=== PATIENT | male | born 1955 | race Caucasian/White ===

== ENCOUNTER → 2018-01-11 | Day surgery (SDC) | payer MEDICARE, BC ==
[2018-01-09 14:39] VITALS: BMI 32.0
[~2018-01-11] MED LIST: LACTATED RINGERS 1,000 ML IV SCH; LIDOCAINE 1% 20 ML VIAL (10MG/ML) FOR IV START INTRADERMA ONE; LIDOCAINE 1% INJ 10MG/ML (20 ML MDV) ONE; PROPOFOL 10 MG/ML 20 ML VIAL IV ONE
[2018-01-11 12:22] VITALS: RESP 16; TEMP 98
--- NOTE | 2018-01-11 13:14 | P.PCN ---
Date of Procedure: 01/11/18 Procedure(s) Performed: BRIEF HISTORY: Patient is a 62-year-old pleasant white male, scheduled for an elective colonoscopy as a part of evaluation of prior history of colon polyps. Last colonoscopy was findings of an adenoma. PROCEDURE PERFORMED: Colonoscopy with snare polypectomy. PREOPERATIVE DIAGNOSIS: History of colon polyps. IV sedation per Anesthesia. PROCEDURE: After informed consent was obtained, the patient, was brought into the endoscopy unit. IV sedation was administered by Anesthesia under continuous monitoring. Digital rectal examination was normal. Initially the Olympus CF- 160 flexible video colonoscope was then inserted in the rectum, gradually advanced into the cecum without any difficulty. Careful examination was performed as the scope was gradually being withdrawn. Ileocecal valve and the appendiceal orifice were visualized and appeared normal. Prep was excellent. Mucosa of the cecum, ascending colon, transverse colon, descending colon, sigmoid colon, and rectum appeared normal. There was a 5 mm sessile mid rectal polyp that was removed by snare polypectomy. Retroflexion was performed in the rectum and no lesions were seen. The patient tolerated the procedure well. IMPRESSION: 5 mm sessile mid rectal polyp status post polypectomy Rest of the colon appeared normal RECOMMENDATIONS: Findings of this examination were discussed with the patient as well as her family. He was advised to follow with the biopsy results. If the biopsy shows a tubular adenoma, he can have a repeat colonoscopy in 5 years.
[2018-01-11 13:51] VITALS: BP 116/80; PULSE 68
== END | disposition home or self-care (01) ==
LOC: ORWHC2ENDO 10:49
PROVIDERS: ATTEND Internal Medicine Gastroenterology
DX: Z86.010 Personal history of colon polyps (principal); K62.1 Rectal polyp; J45.909 Unspecified asthma, uncomplicated; Z88.2 Allergy status to sulfonamides; Z79.899 Other long term (current) drug therapy; E78.5 Hyperlipidemia, unspecified
CPT/HCPCS: 45385; J2001; J2704

== ENCOUNTER → 2020-05-17 | Outpatient (CLI) | payer MEDICARE ==
--- NOTE | 2020-05-17 08:41 | US ---
EXAMINATION TYPE: US duplex aorta DATE OF EXAM: 05/17/2020 COMPARISON: NONE CLINICAL HISTORY: 65-year-old male Z13.6 screening for AAA. HTN controlled with meds. Nonsmoker. No hx of AAA TECHNIQUE: Multiple sonographic images of the abdominal aorta are obtained. FINDINGS: EXAM MEASUREMENTS: Abdominal Aorta: Proximal: 2.4 x 2.5 cm Mid: 2.2 x 2.3 cm Distal: 1.8 x 2.0 cm Bifurcation: Right- 1.3 x 1.1 cm Left- 1.5 x 1.0 cm No AAA visualized at time of exam. Incidental echogenic liver. IMPRESSION: 1. Borderline ectatic proximal abdominal aorta 2.5 cm. 2. Borderline ectatic left common iliac artery at 1.5 cm. 3. No evidence for AAA. 4. Incidental hepatic steatosis.
== END | disposition home or self-care (01) ==
LOC: RADUSWWP 07:22
PROVIDERS: ATTEND Family Medicine
DX: Z13.6 Encounter for screening for cardiovascular disorders (principal); I77.810 Thoracic aortic ectasia; R09.89 Other specified symptoms and signs involving the circulatory and respiratory systems; I10 Essential (primary) hypertension
CPT/HCPCS: 93979

== ENCOUNTER → 2020-06-22 | Outpatient (CLI) | payer MEDICARE ==
--- NOTE | 2020-06-22 15:30 | US ---
EXAMINATION TYPE: US carotid duplex BILAT DATE OF EXAM: 06/22/2020 COMPARISON: NONE CLINICAL HISTORY: R06.09 OTHER FORMS OF DYSPNEA. EXAM MEASUREMENTS: RIGHT: Peak Systolic Velocity (PSV) cm/sec ----- Right CCA: 66.6 ----- Right ICA: 108.2 ----- Right ECA: 83.1 ICA/CCA ratio: 1.6 RIGHT: End Diastole cm/sec ----- Right CCA: 23.7 ----- Right ICA: 37.0 ----- Right ECA: 23.7 LEFT: Peak Systolic Velocity (PSV) cm/sec ----- Left CCA: 79.7 ----- Left ICA: 92.1 ----- Left ECA: 84.0 ICA/CCA ratio: 1.2 LEFT: End Diastole cm/sec ----- Left CCA: 17.6 ----- Left ICA: 34.3 ----- Left ECA: 22.7 VERTEBRALS (direction of flow): Right Vertebral: Antegrade Left Vertebral: Antegrade Rhythm: Normal Bilateral intimal thickening, no elevated velocities, no significant stenosis. IMPRESSION: Atheromatous plaquing and intimal thickening without significant flow-limiting stenosis. Criteria for Assigning % of Stenosis / Diameter reduction (Estimation based on the indirect measurements of the internal carotid artery velocities (ICA PSV). 1. Normal (no stenosis)=ICA PSV < 125 cm/s: ratio < 2.0: ICA EDV<40 cm/s. 2. Less than 50% stenosis=ICA PSV < 125 cm/s: ratio < 2.0: ICA EDV<40 cm/s. 3. 50 to 69% stenosis=ICA PSV of 125 to 230 cm/s: ration 2.0 ? 4.0: ICA EDV 40-100 cm/s. 4. Greater than 70% stenosis to near occlusion= ICA PSV > 230 cm/s: ratio > 4.0: ICA EDV > 100 cm/s. 5. Near occlusion= ICA PSV velocities may be low or undetectable: variable ratio and ICA EDV. 6. Total occlusion=unable to detect flow.
== END | disposition home or self-care (01) ==
LOC: RADUSWWP 14:55
PROVIDERS: ATTEND Family Medicine
DX: I65.23 Occlusion and stenosis of bilateral carotid arteries (principal); I77.89 Other specified disorders of arteries and arterioles
CPT/HCPCS: 93880

== ENCOUNTER → 2020-07-08 | Outpatient (CLI) | payer MEDICARE ==
--- NOTE | 2020-07-08 15:33 | ECHOS ---
STRESS ECHOCARDIOGRAM DATE OF SERVICE: 07/08/2020 LUMASON: N/A Vial INDICATIONS: Chest pain. MEDICATIONS: BASELINE HEART RATE: 80 BASELINE BLOOD PRESSURE: 151/84 MAXIMUM HEART RATE: 134 MAXIMUM BLOOD PRESSURE: 151/84 85% MPHR: 131 100% MPHR: 154 METS: 7.1 MAXIMUM STAGE REACHED: 2 TOTAL EXERCISE TIME: 5 minutes CLINICAL INFORMATION: STRESS DATA: Pre-testing physical examination showed a heart rate of 80, pressure is 151/84 mmHg. Baseline EKG showed sinus mechanism. The patient exercised on the treadmill according to Thomas protocol for a total of 5 minutes and achieved 7.1 METs. Max heart rate was 134 which is about 87% of maximum predicted heart rate and maximum blood pressure was 151/84 mmHg. Clinically, the patient did not have any symptoms of chest pain or chest discomfort. The EKG did not show any significant ST or T-wave abnormalities concerning for ischemia. Analysis on echocardiogram images from parasternal long axis view, parasternal short axis view, apical 4 chamber and apical 2 chambers were obtained as the baseline images, at the peak of the heart rate as well as on recovery. The echocardiogram images did not show any evidence of wall motion abnormalities concerning for ischemia. CONCLUSION: 1. Average exercise tolerance. 2. Normal EKG in response to exercise. 3. Normal echocardiogram in response to exercise. MMODL / IJN: [id number] /
== END ==
LOC: RADNMMAIN 09:06
PROVIDERS: ATTEND Family Medicine
DX: R06.00 Dyspnea, unspecified (principal)
CPT/HCPCS: 93351

== ENCOUNTER → 2021-02-18 | Outpatient (CLI) | payer MEDICARE ==
[2021-02-18 13:24] LABS: African American GFR (CKD) >90 (>60 ml/min/1.73 sqM); Blood Urea Nitrogen 21 mg/dL (9-20); Non-African American GFR(CKD) 89 (>60 ml/min/1.73 sqM)
--- NOTE | 2021-02-18 15:32 | CT ---
EXAMINATION TYPE: CT ChestAbdPelvis w con DATE OF EXAM: 02/18/2021 INDICATION: Abnormal weight loss COMPARISON: 07/21/2013 CT DLP: 1960 mGycm CONTRAST: Performed with Oral Contrast and with IV Contrast, patient injected with 100 ml mL of Isovue 300. TECHNIQUE: Axial images at 5 mm thick sections. Reconstructed images in the coronal plane. Delayed images through the kidneys. FINDINGS: CT CHEST: Portion of the thyroid visualized is normal. No suspicious lung nodules or focal infiltrates are present. No enlarged mediastinal or hilar adenopathy is evident. The ascending aorta diameter at the level of the main pulmonary artery is 4.0 cm. The main pulmonary artery diameter at the bifurcation is 2.[address] ABDOMEN: Liver: Normal Spleen: Normal Pancreas: Normal Adrenal glands: The adrenal glands are normal. Gallbladder: Normal Kidneys: No masses are evident. No hydronephrosis is present. No cysts are present. Delayed images were obtained through the kidneys, which remain unremarkable. Aorta: Vascular calcification is within the aorta. Inferior vena cava: Normal. CT PELVIS: Loops of bowel within the abdomen and pelvis are normal. There are loops of bowel which are incom pletely distended or lack oral contrast limiting their evaluation. Appendix: Normal as visualized. Urinary bladder: Normal. Genitourinary structures: Prostate is prominent. Osseous structures: No suspicious lytic or sclerotic lesions. Small fat-containing left inguinal hernia may be present. No loops of bowel are involved. IMPRESSIONS: 1. No suspicious abnormality to account for patient's weight loss.
== END | disposition home or self-care (01) ==
LOC: RADCTMAIN 12:32
PROVIDERS: ATTEND Family Medicine
DX: R63.4 Abnormal weight loss (principal)
CPT/HCPCS: 82565; 84520; 71260; 74177; 36415; Q9967

== ENCOUNTER → 2021-06-10 | Outpatient (CLI) | payer MEDICARE ==
--- NOTE | 2021-06-10 07:48 | MR ---
EXAMINATION TYPE: MR lumbar spine wo con DATE OF EXAM: 06/10/2021 COMPARISON: Outside lumbar spine x-ray April 11, 2021. CT whole body February 18, 2021 HISTORY: low back pain TECHNIQUE: Multiplanar, multisequence imaging of the lumbar spine is performed without IV contrast. FINDINGS: Sagittal images of the lumbar spine show vertebral body heights and alignment to remain sat isfactory. Multilevel disc desiccation but the disc space heights are fairly well-preserved. The con us medullaris is normal in position and signal ending mid L1 level. Small hemangiomas are present in the L1 vertebra. Mild to moderate anterior spurring at the anterior T11-T12 disc space with heterogen eous Modic type II endplate changes at the anterior inferior T11 level. Posterior disc herniation at this level effaces the anterior thecal sac. Axial images at T12-L1, L1-L2, L2-L3, and L3-L4 levels all appear within normal limits. Axial images at L4-L5 level show [id number] facet degenerative changes bilaterally mildly effac ing the posterolateral thecal sac left greater than right. Mild broad disc bulge . Patent bilateral n eural foramina. Axial images at L5-S1 levels show [id number] facet degenerative changes bilaterally. Spinal can al is preserved. Patent bilateral neural foramina. Paraspinal muscle bulk is maintained. Incidental 1.1 cm benign thin-walled cyst in the left kidney fe lt present axial image 31. IMPRESSION: Mild to moderate degenerative changes lower lumbar spine as detailed above.
== END | disposition home or self-care (01) ==
LOC: RADMRIMAIN 05:57
PROVIDERS: ATTEND Orthopaedic Surgery
DX: M47.816 Spondylosis without myelopathy or radiculopathy, lumbar region (principal); D18.09 Hemangioma of other sites; M25.78 Osteophyte, vertebrae; M51.26 Other intervertebral disc displacement, lumbar region; N28.1 Cyst of kidney, acquired
CPT/HCPCS: 72148

== ENCOUNTER → 2021-06-27 | Outpatient (CLI) | payer MEDICARE ==
--- NOTE | 2021-06-28 03:19 | MR ---
EXAMINATION TYPE: MR thoracic spine wo/w con DATE OF EXAM: 06/27/2021 COMPARISON: None HISTORY: Mid back pain for 4 months. CONTRAST: Standard multiplanar, multisequence MRI departmental protocol images were obtained without contrast a nd with 12 mL intravenous Gadavist gadolinium contrast. There is a prosthetic mild kyphotic deformity with almost 90 degrees of kyphosis. There is some mild anterior wedging of numerous thoracic vertebra. There is involvement of the vertebra from at least T5 -T10. No evidence of an acute fracture. No bone edema. There is developmentally large spinal canal and no spinal stenosis. Thoracic spinal cord has normal s ignal pattern. No edema. No evidence of thoracic paraspinal mass. The posterior elements are intact. IMPRESSION: Spondylotic changes with mild anterior wedging of numerous mid and lower thoracic vertebra and kyphot ic deformity as a result. No acute fracture seen. No evidence of spinal stenosis.
== END | disposition home or self-care (01) ==
LOC: RADMRIMAIN 18:55
PROVIDERS: ATTEND Orthopaedic Surgery
DX: M47.814 Spondylosis without myelopathy or radiculopathy, thoracic region (principal); M40.294 Other kyphosis, thoracic region; M48.54XA Collapsed vertebra, not elsewhere classified, thoracic region, initial encounter for fracture
CPT/HCPCS: 72157; A9585

== ENCOUNTER → 2021-11-08 | Outpatient (CLI) | payer MEDICARE ==
--- NOTE | 2021-11-08 13:11 | MR ---
EXAMINATION TYPE: MR shoulder RT wo con DATE OF EXAM: 11/08/2021 COMPARISON: Outside radiograph 10/18/2021 HISTORY: 66-year-old male Right shoulder pain and limited movement for 2 months. TECHNIQUE: Multiplanar, multisequence imaging of the right shoulder is performed without contrast. FINDINGS: There is a small interstitial tear of the intracapsular portion of the long head biceps tendon. The e xtracapsular portion remains appropriately situated along the bicipital groove. Moderate tenosynovial fluid along the bicipital groove. Small 4 mm loose body along the bicipital groove. Heterogeneity of the subscapularis tendon which otherwise remains intact. There is mild degenerative change at the acromioclavicular joint. Some downsloping of the acromion re sults in mild mass effect onto the underlying cuff. There is bursal sided fraying of both supraspinatus and infraspinatus tendons with heterogeneous sign al present throughout. No high-grade partial or full-thickness tear is identified. Some edematous don nge within the rotator cuff interval likely some synovitis. No significant effusion within the subacromial/subdeltoid bursa. No atrophy of the rotator cuff muscu lature. Small glenohumeral joint effusion. Mild marginal spurring of the glenohumeral joint. Mild to moderate irregular cartilage loss throughout, most extensive cartilage loss along the superior humeral head a rticular surface. Subchondral geode or reactive marrow edema posterior glenoid. Small loose bodies wi thin the subscapularis recess measuring up to 7 mm. There is irregularity of the posterior superior glenoid labrum. Suspect a small sublabral foramen wesly ng the anterior superior glenoid. There is a sizable tear of the inferior labrum extending for about 45 degrees with a 1.3 x 0.8 cm paralabral cyst at 7:00. No Hill-Sachs deformity or os acromiale. Some patchy red marrow can be seen in the setting of anemia, obesity, smoking, and chronic disease. IMPRESSION: 1. Mild to moderate glenohumeral joint OA with more significant cartilage loss along the superior art icular surface of the humeral head. Small reactive joint effusion and small loose bodies in the subsc apularis recess measuring up to 7 mm. 2. Small SLAP tear. Larger tear of the inferior labrum extending for about 45 degrees. Associated 1.3 cm paralabral cyst at 7:00. 3. Diffuse rotator cuff tendinosis. There is bursal sided fraying throughout but no high-grade partia l or full-thickness rotator cuff tear. 4. Mild AC joint OA. Downsloping acromion may contribute to some subacromial impingement. 5. Interstitial tear of the intracapsular portion of the long head biceps tendon. Associated tenosyno vitis.
== END | disposition home or self-care (01) ==
LOC: RADMRIMAIN 10:59
PROVIDERS: ATTEND Orthopaedic Surgery
DX: M19.011 Primary osteoarthritis, right shoulder (principal); M75.111 Incomplete rotator cuff tear or rupture of right shoulder, not specified as traumatic

== ENCOUNTER → 2022-02-08 | Outpatient (CLI) | payer MEDICARE ==
[2022-02-08 14:34] LABS: Basophils # (A) 0.04 X 10*3/uL (0.00-0.10); Basophils % (A) 0.7 %; Eosinophils # (A) 0.19 X 10*3/uL (0.04-0.35); Eosinophils % (A) 3.5 %; HCT 43.9 % (39.6-50.0); HGB 14.7 g/dL (13.0-17.0); Immature Grans, Automated 0.4 %; Lymphocytes # (A) 1.93 X 10*3/uL (0.90-5.00); Lymphocytes % (A) 35.2 %; MCH 32.6 pg (27.0-32.0); MCHC 33.5 g/dL (32.0-37.0); MCV 97.3 fL (80.0-97.0); Monocytes # (A) 0.64 X 10*3/uL (0.20-1.00); Monocytes % (A) 11.7 %; NRBC Per 100 WBC 0 /100 WBCS (0.0-0.0); Neutrophils # (A) 2.67 X 10*3/uL (1.80-7.70); Neutrophils % (A) 48.5 %; Platelet Count 258 X 10*3/uL (140-440); RBC 4.51 X 10*6/uL (4.40-5.60); WBC 5.49 X 10*3/uL (4.50-10.00)
[2022-02-08 15:26] LABS: Anion Gap 8.5 mmol/L (10.00-18.00); Carbon Dioxide 28.4 mmol/L (20.0-27.5); Potassium 4.8 mmol/L (3.5-5.5)
== END | disposition home or self-care (01) ==
LOC: LABPAT 09:54
PROVIDERS: ATTEND Orthopaedic Surgery
DX: Z01.812 Encounter for preprocedural laboratory examination (principal); M75.41 Impingement syndrome of right shoulder
CPT/HCPCS: 80051; 85025; 93005

== ENCOUNTER 2022-02-22 06:38 | Day surgery (SDC) | payer MEDICARE ==
[2022-02-21 08:55] VITALS: BMI 31.4
--- NOTE | 2022-02-21 23:29 | HP ---
HISTORY AND PHYSICAL DATE OF SURGERY: 02/22/2022. HISTORY OF PRESENT ILLNESS: Yomi Oropeza is a 67-year-old gentleman, seen with progressive right shoulder pain. We discussed options for treatment. He elected to proceed with right shoulder arthroscopy. Consent regarding the procedure was obtained. PAST MEDICAL HISTORY: Hypertension, hyperlipidemia. PAST SURGICAL HISTORY: Herniorrhaphy, tonsillectomy, vasectomy. DAILY MEDICATIONS: 1. Lipitor. 2. Amlodipine. 3. Mobic. 4. Aleve. ALLERGIES: Sulfa. SOCIAL HISTORY: He denies tobacco use. PHYSICAL EVALUATION OF RIGHT SHOULDER: Flexion 110 degrees, abduction is 90 degrees, external rotation is 30 degrees with weakness. Tenderness along the anterolateral acromion and rotator cuff insertion. Impingement is positive at 90 degrees. Cross-body adduction sign is positive. Drop- arm sign is positive. Distal neurovascular exam is intact. RADIOGRAPHS: Radiographs of the right shoulder revealed a type 2 acromion, acromioclavicular joint osteoarthritis, and cystic changes of the greater tuberosity. MRI of the right shoulder revealed a labral tear, downsloping lateral acromion, rotator cuff tendinitis, and partial biceps tendon tear. IMPRESSION: 1. Right shoulder impingement with labral tear and possible rotator cuff tear. 2. Right shoulder partial long head biceps tendon tear. 3. Hypertension. 4. Hyperlipidemia. PLAN: Right shoulder arthroscopy with subacromial decompression, labral debridement, biceps tenotomy, possible arthroscopic rotator cuff repair and debridement. MMODL / BEATAN: [id number] /
[2022-02-22] MEDS ORDERED: HYDROmorphone 0.5 MG/0.5 ML SYRINGE IVP PRN (07:07)
[2022-02-22] MEDS ORDERED: LACTATED RINGERS 1,000 ML IV SCH (07:07)
[2022-02-22] MEDS ORDERED: DEXAMETHASONE SOD PHOSPHATE 4 MG/ML 1 ML VIAL IV ONE (07:07)
[2022-02-22] MEDS ORDERED: ONDANSETRON 4 MG/2 ML VIAL IVP ONE (07:07)
[2022-02-22 07:54] LABS: Glucose,Whole Blood 102 mg/dL (70-110)
[2022-02-22] MEDS ORDERED: MIDAZOLAM 2 MG/2 ML VIAL IVP ONE (07:58)
[2022-02-22] MEDS ORDERED: fentaNYL (PF) 50 MCG/ML 2 ML AMP IVP ONE (07:59)
[2022-02-22] MEDS ORDERED: PROPOFOL 10 MG/ML 20 ML VIAL IV ONE (08:11)
[2022-02-22] MEDS ORDERED: ROPIVACAINE 5 MG/ML 30 ML VIAL ONE (08:11)
[2022-02-22] MEDS ORDERED: HYDROmorphone (PF) 1 MG/ML ONE (08:11)
[2022-02-22] MEDS ORDERED: fentaNYL (PF) 50 MCG/ML 2 ML AMP ONE (08:11)
[2022-02-22] MEDS ORDERED: SUCCINYLCHOLINE CHLORIDE 200 MG/10 ML VIAL IV ONE (08:11)
[2022-02-22] MEDS ORDERED: MIDAZOLAM 2 MG/2 ML VIAL ONE (08:11)
[2022-02-22] MEDS ORDERED: LIDOCAINE 2% INJ 20 MG/ML (2 ML VIAL) ONE (08:11)
[2022-02-22] MEDS ORDERED: LACTATED RINGERS 1,000 ML IV ONE (09:13)
--- NOTE | 2022-02-22 09:54 | P.ANPRN ---
Procedure Note - Anesthesia - Nerve Block Performed Right Interscalene Single Time Out Performed: Yes ([id number]) Date of Procedure: 02/22/22 Procedure Start Time: 07:58 Procedure Stop Time: 08:04 Location of Patient: PreOp Indication: Acute Post-Operative Pain, Requested by Surgeon Specifically requested for management of pain by DrDante: Yomi Mata Sedation Type: Sedate with meaningful contact maintained Preparation: Sterile Prep Position: Supine Catheter: None Needle Types: Pajunk Needle Gauge: 21 Ultrasound used to visualize needle placement: Yes Ultrasound used to observe medication spread: Yes Injectate: 0.5% Ropivacaine (see comment for volume) (30cc) Blood Aspirated: No Pain Paresthesia on Injection Noted: No Resistance on Injection: Normal Image Stored and Saved: Yes Events: Uneventful and Well Tolerated
--- NOTE | 2022-02-22 09:58 | P.OP ---
Date of Procedure: 02/22/22 Preoperative Diagnosis: Right shoulder impingement Postoperative Diagnosis: 1. Right shoulder rotator cuff tear 2. Right shoulder impingement 3. Right shoulder partial long head biceps tendon tear 4. 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 Right shoulder arthroscopic rotator cuff repair 2. Right shoulder arthroscopic subacromial decompression 3. Right shoulder arthroscopic biceps tenotomy Implants: 14.75 Arthrex swivel lock anchor Anesthesia: GETA, regional (Interscalene block) Surgeon: Yomi Mata Senior Corporate Accountant #1: Silvestre Kelley Estimated Blood Loss (ml): 11 Pathology: none sent Condition: stable Disposition: PACU Indications for Procedure: 67-year-old patient seen with progressive right shoulder pain. After having treatment options discussed, he elected to proceed with arthroscopy. Operative Findings: See description of procedure Description of Procedure: Patient underwent an interscalene block by department of anesthesia. The patient was then taken to the operative suite. The patient underwent a general anesthetic by the department of anesthesia. The patient was placed into a lateral position and secured. There was appropriate padding of the bony prominence. Right shoulder was then prepped and draped in normal sterile orthopedic fashion. We placed the extremity in 10 pounds of longitudinal traction. A posterior incision was now made for a posterior working portal site. The trocar and cannula were inserted into the glenohumeral joint. Arthroscopy was initiated. Spinal needle was now inserted anteriorly, to ascertain the anterior working portal site. An incision was now made in that area, a trocar was inserted followed by a probe. There was some partial tearing and hyperemia involving long head biceps tendon. There was grade 2/3 chondral malacia changes of the humeral head more notable posteriorly with. Mild osteochondral flap tears. The labrum was frayed superiorly without obvious tear. I performed an arthroscopic biceps tenotomy. I debrided some superficial fraying of the superior labrum. I performed a light chondroplasty of the humeral head. The residual osteochondral surface was stable again noted grade 2/3 chondromalacia more posteriorly. The residual labrum was stable. Instruments were now removed from the glenohumeral joint. Utilizing the posterior working portal site, the trocar and cannula were inserted into the subacromial space. Arthroscopy initiated. I made an incision 2 fingerbreadths lateral to the acromion. I introduced my trocar followed by my ArthroCare ablator. I now began ablating thick subacromial bursal tissue, which exposed the undersurface of the anterior acromion. There was diminished subacromial space. There was a very prominent anterior acromion. A motorized bur was introduced and a subacromial decompression was performed. I also excised some osteophytes off the inferior aspect of the distal clavicle. The AC joint was visualized and noted to be moderately arthritic. I did not think enough toward a Avelino procedure. I turned my attention to the rotator cuff tendon. Upon probing the tendon was a full-thickness perforation along the distal supraspinatus. I debrided the margins getting down to stable tendon tissue. Care/defect measured approximately 1.5 cm. It was freely mobile over the footprint. I abraded the footprint with a motorized bur. With the assistance of Aleksandr SPEAR I passed 3 everted mattress sutures through good bites of rotator cuff tendon. I punched a hole the footprint area for insertion of an anchor. All 6 limbs of suture were passed through eyelet of a 4.75 Arthrex swivel lock anchor. I placed the eyelit into the pre-punched hole. I held that in position while Aleksandr SPEAR tension all 6 limbs of suture and deployed the anchor was good fixation noted. All residual suture limbs were now clipped. We had good compression of the tendon along the entire footprint. Instruments now removed from the portal sites. All portal sites were approximated with nylon suture. Sterile dressings were applied followed by a shoulder sling. Silvestre SPEAR assisted in this complex case. The patient was awakened, transferred to a bed, and taken to recovery in stable condition.
[2022-02-22 10:01] VITALS: TEMP 97.9
[2022-02-22 11:29] VITALS: BP 134/79; PULSE 67; RESP 20
== END 2022-02-22 11:58 | disposition home or self-care (01) ==
LOC: OR 06:38
PROVIDERS: ATTEND Orthopaedic Surgery
DX: M75.111 Incomplete rotator cuff tear or rupture of right shoulder, not specified as traumatic (principal); G89.18 Other acute postprocedural pain; M75.41 Impingement syndrome of right shoulder; M94.211 Chondromalacia, right shoulder; J45.909 Unspecified asthma, uncomplicated; G47.33 Obstructive sleep apnea (adult) (pediatric); I10 Essential (primary) hypertension; F41.9 Anxiety disorder, unspecified; F32.A Depression, unspecified; E78.5 Hyperlipidemia, unspecified; Z90.89 Acquired absence of other organs; Z98.52 Vasectomy status; Z88.2 Allergy status to sulfonamides; Z87.891 Personal history of nicotine dependence; Z79.899 Other long term (current) drug therapy
CPT/HCPCS: 64415; 76942; 29827; 29826; C1713; J2250; J0330; J1100; J0690; J2405; J3010; J1170; J2795; J2704; J2001

== ENCOUNTER → 2022-11-23 | Outpatient (CLI) | payer MEDICARE ==
--- NOTE | 2022-11-23 15:13 | P.SLEEP ---
History of Present Illness DATE: 11/23/2022 CONSULTATION/NEW PATIENT EVALUATION HISTORY OF PRESENT ILLNESS/SLEEP-WAKE EVALUATION: 67 year old gentleman had been evaluated in the sleep center for possible obstructive sleep apnea hypopnea syndrome. SLEEP SCHEDULE: Usually sleep schedule from 10 PM to 9 AM 7 days a week. FALLING ASLEEP: No problems with falling asleep. DURING SLEEP: Patient usually sleeps on the stomach position. According to his he has loud snoring and witnessed episodes of stop breathing during the sleep. Positive history of sweating at night No history of hypnogogical hallucinations, sleep paralysis, or cataplexy. DURING THE DAY/WAKE STATE: In the morning patient wake up tired, has problems with memory, irritability, depression and anxiety. [place] sleepiness scale is 7. Usually patient doesn't take naps. PAST MEDICAL HISTORY: Depression, hyperlipidemia, hypothyroidism, asthma. PAST SURGICAL HISTORY: Vasectomy, hernia repair, right shoulder repair. MEDICATIONS: Trazodone 100 mg once a day, Cymbalta 60 mg once a day, levothyroxine 50 g once a day, rosuvastatin 20 mg once a day. SOCIAL HISTORY: Positive history of smoking for 15 pack years quit about 20 years ago, alcohol consumption occasional. FAMILY HISTORY: []. REVIEW OF SYSTEMS: Snoring, awakenings from sleep with nocturia. No fevers. No double vision. No recent chest pain. No shortness of breath. No abdominal pain. No bleeding episodes. No blood in urine. No seizure episodes. PHYSICAL EXAMINATION: GENERAL: A pleasant patient without any distress. VITAL SIGNS: BP 125/61, HR 88, RR 12, weight 266.2 pounds, height 6 foot 4 inches, body mass index 32.6, temperature 97.5, oxygen saturation at room air 95%. HEENT: PERRLA, EOMI. Evaluation of oropharynx showed tongue protrudes midline, low position of soft palate Mallampati 33. NECK: Supple. No JVD. Thyroid is not palpable. 20 inches in circumference. LUNGS: Clear to percussion and to auscultation. Good air exchange. No wheezing or rhonchi. HEART: S1, S2 regular. No murmurs, gallops or rubs. ABDOMEN: Soft and nontender. Bowel sounds are present. No organomegaly appreciated. EXTREMITIES: No clubbing or cyanosis. FERN GATHERER: Awake, alert, and oriented x3. Cranial nerves 2 to 7 intact. There is no fasciculation or atrophy noted. No focal deficits observed. ASSESSMENT: 1. Loud snoring, witnessed episodes of stop breathing during the sleep, low position of soft palate Mallampati 3, wide neck 20 inches in circumference. Obstructive sleep apnea-hypopnea syndrome 2. History of depression 3. Mild obesity, BMI 32.6 4. Hypothyroidism 5 hyperlipidemia 6 . status post right shoulder repair 7. History of asthma 8. History of skin cancer PLAN: 1. Polysomnography for evaluation of patient's breathing during sleep. 2. CPAP/BiPAP titration if sleep study confirms obstructive sleep apnea- hypopnea syndrome. 3. Preferable position during sleep on the side. 4. No driving if patient feels any sleepiness. Patient is aware of civil and criminal liability for unsafe driving. 5. Sleep hygiene with regular sleep time for at least 7.5-8 hours. 6. Watching and losing weight. Thank you very much for referring this patient for consultation. Sincerely, Amrit Santamaria MD, PhD, FAASM. Diplomat of [place] [employer], Sleep Medicine Board by [place] [employer] [place] [employer] Nursing Coordinator of [facility] Past Medical History Past Medical History: Asthma, Cancer, Hyperlipidemia, Sleep Apnea/CPAP/BIPAP Additional Past Medical History / Comment(s): NO CPAP. SKIN CANCER LT SHOULDER History of Any Multi-Drug Resistant Organisms: None Reported Past Surgical History: Hernia Repair, Tonsillectomy Additional Past Surgical History / Comment(s): SINUS SURGERY. RIGHT ING., leticia cataract,vasectomy, SKIN CANCER LT SHOULDER REMOVED Past Anesthesia/Blood Transfusion Reactions: Motion Sickness Smoking Status: Former smoker - Past Family History Mother Family Medical History: No Reported History Brother(s) Family Medical History: Cancer Additional Family Medical History / Comment(s): eye,prostate Medications and Allergies Home Medications Medication Instructions Recorded Confirmed Type Ergocalciferol (Vitamin D2) 50,000 unit PO MONSON 01/09/18 02/22/22 History [Vitamin D2] DULoxetine HCL [Cymbalta] 60 mg PO DAILY 02/21/22 02/22/22 History Gabapentin 300 mg PO DAILY 02/21/22 02/22/22 History Rosuvastatin [Crestor] 20 mg PO DAILY 02/21/22 02/22/22 History traZODone HCL [Desyrel] 200 mg PO HS 02/21/22 02/22/22 History HYDROcodone/APAP 7.5-325MG [Cabins 1 each PO Q6HR PRN #28 tab 02/22/22 Rx 7.5] Allergies Allergy/AdvReac Type Severity Reaction Status Date / Time Sulfa (Sulfonamide AdvReac Nausea & Verified 02/22/22 07:30 Antibiotics) Vomiting & Diarrhea Sleep Note - Sleep Note Sleep Note: Temperature: Pulse Rate: Respiratory Rate: Blood Pressure: SpO2: Height: Weight: BMI: Neck Circumference:
== END ==
LOC: 3 N SLEEP 14:10
PROVIDERS: ATTEND Internal Medicine
DX: G47.30 Sleep apnea, unspecified (principal); G47.33 Obstructive sleep apnea (adult) (pediatric); F32.A Depression, unspecified; E78.5 Hyperlipidemia, unspecified; E66.9 Obesity, unspecified; J45.909 Unspecified asthma, uncomplicated; F41.9 Anxiety disorder, unspecified; E03.9 Hypothyroidism, unspecified; Z85.828 Personal history of other malignant neoplasm of skin; Z68.32 Body mass index [BMI] 32.0-32.9, adult; Z99.89 Dependence on other enabling machines and devices; Z79.890 Hormone replacement therapy; Z88.2 Allergy status to sulfonamides; Z87.891 Personal history of nicotine dependence
CPT/HCPCS: 99211

== ENCOUNTER → 2023-03-22 | Outpatient (CLI) | payer MEDICARE ==
--- NOTE | 2023-03-22 11:37 | US ---
EXAMINATION TYPE: US carotid duplex BILAT DATE OF EXAM: 03/22/2023 COMPARISON: NONE CLINICAL INDICATION: Male, 68 years old with history of I65.29 OCCLUSION AND STENOSIS OF UNSPECIFIED CAROT; TECHNIQUE: Carotid duplex ultrasound examination. Indirect Doppler criteria was utilized. FINDINGS: EXAM MEASUREMENTS: RIGHT: Peak Systolic Velocity (PSV) cm/sec ----- Right CCA: 48 ----- Right ICA: 92 ----- Right ECA: 53 ICA/CCA ratio: 1.9 RIGHT: End Diastole cm/sec ----- Right CCA: 14 ----- Right ICA: 30 ----- Right ECA: 10 LEFT: Peak Systolic Velocity (PSV) cm/sec ----- Left CCA: 62 ----- Left ICA: 69 ----- Left ECA: 67 ICA/CCA ratio: 1.1 LEFT: End Diastole cm/sec ----- Left CCA: 18 ----- Left ICA: 28 ----- Left ECA: 13 VERTEBRALS (direction of flow): Right Vertebral: Antegrade Left Vertebral: Antegrade Rhythm: Normal HANDWRITING EXPERT NOTES: Calcified plaque noted bilateral carotid bulbs, no intimal thickening or elevated velocities noted. IMPRESSION: 1. Some hard plaquing and intimal thickening is present. No significant flow-limiting stenosis based on velocities is evident. Criteria for Assigning % of Stenosis / Diameter reduction (Estimation based on the indirect measurements of the internal carotid artery velocities (ICA PSV). 1. Normal (no stenosis)=ICA PSV < 125 cm/s: ratio < 2.0: ICA EDV<40 cm/s. 2. Less than 50% stenosis=ICA PSV < 125 cm/s: ratio < 2.0: ICA EDV<40 cm/s. 3. 50 to 69% stenosis=ICA PSV of 125 to 230 cm/s: ration 2.0 ? 4.0: ICA EDV 40-100 cm/s. 4. Greater than 70% stenosis to near occlusion= ICA PSV > 230 cm/s: ratio > 4.0: ICA EDV > 100 cm/s. 5. Near occlusion= ICA PSV velocities may be low or undetectable: variable ratio and ICA EDV. 6. Total occlusion=unable to detect flow.
== END | disposition home or self-care (01) ==
LOC: RADUSWWP 10:44
PROVIDERS: ATTEND Family Medicine
DX: I65.29 Occlusion and stenosis of unspecified carotid artery (principal)
CPT/HCPCS: 93880

== ENCOUNTER → 2023-08-22 | Outpatient (CLI) | payer MEDICARE ==
[2023-08-22 16:51] VITALS: BP 134/79; PULSE 77; RESP 16; TEMP 98.5
--- NOTE | 2023-08-22 17:02 | P.PN ---
Subjective DATE: 08/22/2023 FOLLOW UP VISIT. Patient with obstructive sleep apnea hypopnea syndrome return to sleep center for follow-up visit. Recently patient had sleep study which documented obstructive sleep apnea hypopnea syndrome. Patient was initiated on PAP therapy and today is first visit after treatment was started. Patient is supposed to come up to 3 months after starting to use CPAP equipment, but he is came a little bit later because he was out of town. Patient was able to use PAP equipment every night for the whole night. The patient does not have significant problems with the mask, PAP pressure and humidification. [place] sleepiness scale is 7. I checked information from PAP unit. PAP unit pressure 5-12, average 10.9 cm H2O. Usage is 83% for more then 4 hours, average 9 hours per night. Leak is 9.6 l/m, which is in acceptable range. Apnea Hypopnea Index is 1.7, which is normal. MEDICATIONS:1. Trazodone 100 mg once a day 2. Cymbalta 60 mg once a day 3. Levothyroxine 50 mcg once a day 4. Rosuvastatin 20 mg once a day During physical exam: GENERAL: A pleasant patient without any distress. VITAL SIGNS: Please see below. HEENT: PERRLA, EOMI.low position of soft palate, Mallapati 3 . NECK: Supple. No JVD. LUNGS: Clear to percussion and to auscultation. Good air exchange. No wheezing or rhonchi. HEART: S1, S2 regular. ABDOMEN: Soft and nontender.[] EXTREMITIES: No clubbing or cyanosis. MENTAL HEALTH COORDINATOR: Awake, alert, and oriented x3. No focal deficit. Impressions: 1. Obstructive sleep apnea-hypopnea syndrome. Patient demonstrated great compliance with treatment, benefiting from treatment. 2. History of depression. 3. Mild obesity, patient increased his weight on 14 pounds comparing with the previous visit, present weight 280.6 pounds. 4. Hypothyroidism. 5. Hyperlipidemia. 6. Status post right shoulder repair. 7. History of asthma. 8. History of skin cancer. Plan: 1. Continue using PAP equipment every night for the whole night. 2. To change air filter at least 1-2 times per month. 3. PAP unit should stay lower then position of the head. 4. Advised patient to remove all remaining water from humidifier canister daily and make it dry after each usage. Refill canister with fresh distilled water before each usage. 5. Sleep hygiene with regular time in bed for at least 8 hours. 6. Precautions related to driving. No driving if feel any sleepiness. 7. I will maintain prescription for PAP supplies including mask, tube, filters. 8. Follow up visit in 6 months or earlier if patient has any problems. 9. Watching weight. Thank you very much for allowing me to participate in the management of your patient. Amrit Santamaria MD, PhD, FAASM. Diplomat of [place] [employer], Sleep Medicine Board by [place] [employer] Hand Sample Maker of [facility] [place] Objective - Vital Signs Vital signs: Vital Signs Temp 98.5 F 08/22/23 16:27 Pulse 77 08/22/23 16:27 Resp 16 08/22/23 16:27 BP 134/79 08/22/23 16:27 Pulse Ox 94 L 08/22/23 16:27 FiO2 Intake & Output 08/21/23 08/22/23 08/22/23 18:59 06:59 18:59 Weight 127.006 kg
== END ==
LOC: 3 N SLEEP 15:55
PROVIDERS: ATTEND Internal Medicine
DX: G47.33 Obstructive sleep apnea (adult) (pediatric) (principal); E66.9 Obesity, unspecified; E03.9 Hypothyroidism, unspecified; E78.5 Hyperlipidemia, unspecified; F32.A Depression, unspecified; Z87.09 Personal history of other diseases of the respiratory system; Z85.828 Personal history of other malignant neoplasm of skin; Z98.890 Other specified postprocedural states; Z99.89 Dependence on other enabling machines and devices; Z79.890 Hormone replacement therapy; Z88.2 Allergy status to sulfonamides; Z87.891 Personal history of nicotine dependence
CPT/HCPCS: 99212

== ENCOUNTER → 2023-11-06 | Outpatient (CLI) | payer MEDICARE ==
--- NOTE | 2023-11-18 21:22 | MR ---
EXAMINATION TYPE: MR knee RT wo con DATE OF EXAM: 11/07/2023 COMPARISON: Right knee radiograph 10/26/2023. HISTORY: Pain TECHNIQUE: Multiplanar, multisequence imaging of the right knee is performed without contrast. FINDINGS: Medial meniscus: Nondisplaced horizontal flap tear of the medial meniscus body and posterior horn, co ntacting the tibial articular surface. Medial compartment cartilage: High-grade thinning in the medial compartment cartilage with small area s of full-thickness articular cartilage loss in the medial tibial plateau. Medial collateral ligament: The MCL is thickened and increased in signal, relating to low-grade sprai n. Lateral meniscus: Intact. Lateral compartment cartilage: Focal areas of full-thickness articular cartilage fissuring in the lat eral femoral condyle cartilage. Lateral collateral ligament: Intact. Patellofemoral alignment: Normal. Patellofemoral compartment cartilage: Partial-thickness thinning of the patellar articular cartilage. Extensor mechanism: Normal. Anterior cruciate ligament: Intact. Posterior cruciate ligament: Intact. Bone marrow: Normal. Soft tissues: Nonspecific prepatellar subcutaneous edema.. Small knee joint effusion. 4.9 cm trilobed Carvajal's cyst. Neurovascular: Normal. IMPRESSION: 1. Nondisplaced horizontal flap tear of the medial meniscus. 2. Low-grade MCL sprain. 3. Tricompartmental chondromalacia, most pronounced in the medial compartment. 4. Small joint effusion. 5. Carvajal's cyst.
== END | disposition home or self-care (01) ==
LOC: RADMRIMAIN 19:15
PROVIDERS: ATTEND Orthopaedic Surgery
DX: S83.241A Other tear of medial meniscus, current injury, right knee, initial encounter (principal); M94.261 Chondromalacia, right knee; M71.21 Synovial cyst of popliteal space [Baker], right knee

== ENCOUNTER → 2023-12-13 | Outpatient (CLI) | payer MEDICARE | END | disposition home or self-care (01) | LOC: LABPRL 12:34 | PROVIDERS: ATTEND Orthopaedic Surgery | CPT/HCPCS: 80051; 85025 ==

== ENCOUNTER 2023-12-26 07:34 | Day surgery (SDC) | payer MEDICARE ==
[2023-12-26] MEDS ORDERED: BUPIVACAINE (PF) 0.25% 30 ML VIAL ONE (08:30)
[2023-12-26] MEDS ORDERED: DEXAMETHASONE SOD PHOSPHATE 4 MG/ML 1 ML VIAL ONE (08:30)
[2023-12-26] MEDS ORDERED: ONDANSETRON 4 MG/2 ML VIAL ONE (08:30)
[2023-12-26] MEDS ORDERED: LACTATED RINGERS 1,000 ML BAG ONE (08:30)
[2023-12-26] MEDS ORDERED: PROPOFOL 10 MG/ML 20 ML VIAL IV ONE (08:34)
[2023-12-26] MEDS ORDERED: KETOROLAC 30 MG/ML 1 ML VIAL ONE (08:34)
[2023-12-26] MEDS ORDERED: fentaNYL (PF) 50 MCG/ML 2 ML AMP ONE (08:34)
[2023-12-26] MEDS ORDERED: MIDAZOLAM 2 MG/2 ML VIAL ONE (08:34)
[2023-12-26] MEDS ORDERED: LIDOCAINE 1% INJ 10MG/ML (20 ML MDV) ONE (08:34)
--- NOTE | 2024-01-18 11:25 | HP ---
HISTORY AND PHYSICAL SURGERY DATE: 12/26/2023 INDICATIONS FOR PROCEDURE: Yomi Oropeza is a gentleman seen with progressive right knee pain. We discussed options regarding treatment. He elects to proceed with right knee arthroscopy. Consent was obtained. Preoperative cardiac clearance was provided by Dr. Lee. PAST MEDICAL HISTORY: Hypothyroidism, hypertension, hyperlipidemia, cardiovascular disease. PAST SURGICAL HISTORY: Noncontributory. DAILY MEDICATIONS: Levothyroxine, rosuvastatin, Toprol, trazodone, and Xarelto. ALLERGIES: None reported. SOCIAL HISTORY: Denies tobacco use. PHYSICAL EVALUATION OF THE RIGHT KNEE: His range of motion is negative 2 to 120 degrees. Tenderness, medial joint line. Positive medial Shelly's. Ligaments stable. Hip rotation without pain. Distal neurovascular exam intact. IMPRESSION: Internal derangement of right knee with medial meniscal tear and osteochondral defect/chondromalacia. PLAN: Right knee arthroscopy with partial medial meniscectomy, microfracture medial femoral condyle and debridement. MMODL / IJN: [id number] /
--- NOTE | 2024-02-01 11:01 | OP ---
OPERATIVE REPORT DATE OF SERVICE : 12/26/2023 PREOPERATIVE DIAGNOSIS: Internal derangement, right knee. POSTOPERATIVE DIAGNOSES: 1. Tear, medial and lateral meniscus, right knee. 2. Grade 4 chondromalacia, lateral femoral condyle, right knee. 3. Grade 4 chondromalacia, femoral sulcus, right knee. 4. Reactive synovitis; medial, lateral, and suprapatellar compartments, right knee. PROCEDURES: 1. Arthroscopic partial medial and lateral meniscectomy, right knee. 2. Arthroscopic microfracture, lateral femoral condyle, right knee. 3. Arthroscopic microfracture, femoral sulcus, right knee. 4. Arthroscopic partial synovectomy; medial, lateral, and suprapatellar compartments, right knee. ANESTHESIA: General. ESTIMATED BLOOD LOSS: 6 mL. The patient tolerated the procedure well. INDICATIONS: Yomi Oropeza is a gentleman seen with progressive right knee pain. After having treatment options discussed, he elected to proceed with arthroscopy. Consent was obtained. DESCRIPTION OF PROCEDURE: The patient was taken to the operative suite. He received preoperative IV antibiotics. He underwent general anesthetic by the Department of Anesthesia. Right lower extremity was placed in a well-padded arthroscopic leg palomares. Prepped and draped in normal sterile orthopedic fashion. Lateral parapatellar incision made. Trocar inserted. Arthroscopy initiated. Suprapatellar compartment revealed diffuse thick reactive synovitis. There were grade 4 chondromalacia changes of the patella and an area of grade 4 chondromalacia of the femoral sulcus. Scope was guided into medial gutter, no loose bodies identified. Scope guided into medial compartment, medial parapatellar incision made. Trocar inserted followed by a probe. There was a complex tear involving the posterior horn and midbody of the medial meniscus. Grade 2/3 chondromalacia changes of the medial compartment without tears. Thick reactive synovitis anteriorly. I performed a partial medial meniscectomy, getting down a stable meniscal tissue. I performed a partial synovectomy decompressing the reactive synovitis. The residual meniscus was probed and was found to be stable. There was an area of grade 4 chondromalacia involving the posterior aspect of the tibial plateau with exposed bone. We had good decompression of the synovitis. The scope and probe were then guided into the intercondylar notch. ACL identified, probe found to be stable. Scope probed into the lateral compartment with small radial tear involving the lateral meniscus midbody area. There was near grade 3/4 chondromalacia of the lateral femoral condyle with some osteochondral flap tears and thick reactive synovitis anteriorly. I performed a partial lateral meniscectomy, getting down to a stable meniscal tissue. I performed a chondroplasty of the lateral femoral condyle, getting down to stable osteochondral tissue. I performed a partial synovectomy decompressing the reactive synovitis. I did note an area of exposed bone along the lateral femoral condyle measuring about a centimeter. I introduced some microfracture awl. I performed a microfracture to the area of exposed bone, lateral femoral condyle, penetrating the bone with resultant bleeding at the microfracture site. The residual meniscus was probed and was found to be stable. The residual osteochondral surface, lateral femoral condyle was stable. There was good decompression of the synovitis. The probe was removed. The scope was now guided into the lateral gutter, no loose bodies. Scope was guided back to the suprapatellar compartment. I again noted area of exposed bone involving the femoral sulcus that measured about 1 x 2 cm. I introduced some microfracture awl and I performed 2 microfractures to the area of exposed bone, femoral sulcus penetrating the bone at both microfracture sites with resultant bleeding at both microfracture sites. I introduced a motorized shaver. I performed a partial synovectomy. I introduced a probe and probed out the microfracture site area, they were stable. The probe was removed. We had good decompression of the synovitis. I took one more look around the entire knee, no residual debris. Instruments were removed from the knee. The portal sites were approximated with Steri-Strips. The joint was infiltrated with 0.25% plain Marcaine totaling 25 mL. Sterile dressings were applied followed by CARA hose. No tourniquet was utilized. The patient was awakened, transferred to a bed, then Recovery in stable condition. MMODL / IJN: [id number] /
== END 2023-12-26 12:15 ==
LOC: OR 07:34
PROVIDERS: ATTEND Orthopaedic Surgery
DX: S83.241A Other tear of medial meniscus, current injury, right knee, initial encounter (principal); S83.281A Other tear of lateral meniscus, current injury, right knee, initial encounter; M22.41 Chondromalacia patellae, right knee; M65.161 Other infective (teno)synovitis, right knee; I25.10 Atherosclerotic heart disease of native coronary artery without angina pectoris; I10 Essential (primary) hypertension; E78.5 Hyperlipidemia, unspecified; E03.9 Hypothyroidism, unspecified; Z79.899 Other long term (current) drug therapy; Z79.890 Hormone replacement therapy; X58.XXXA Exposure to other specified factors, initial encounter

== ENCOUNTER → 2024-03-12 | Outpatient (CLI) | payer MEDICARE ==
[2024-03-12 11:19] VITALS: BP 153/81; PULSE 67; RESP 16; TEMP 98.3
--- NOTE | 2024-03-12 11:55 | P.PROGSL ---
Subjective DATE: 03/12/2024 FOLLOW UP VISIT. Patient with obstructive sleep apnea hypopnea syndrome return to sleep center for follow-up visit. Information from previous visit have been reviewed. Patient is using PAP equipment every night for the whole night, getting PAP supplies in time. The patient does not have significant problems with the mask, PAP unit and humidification. [place] sleepiness scale is 3, which is normal. I checked information from PAP unit. PAP unit pressure 5-12, average 11.9 cm H2O. Usage is 100% for more then 4 hours, average 8.9 hours per night. Leak is 10 l/m, which is in acceptable range. Apnea Hypopnea Index is 6.6, which is increased comparing with the previous visit when it was 1.7. MEDICATIONS have been reviewed, please see below. During physical exam: GENERAL: A pleasant patient without any distress. VITAL SIGNS: Please see below, weight is 299.0 lbs. HEENT: PERRLA, EOMI.low position of soft palate, Mallapati 3. NECK: Supple. No JVD. LUNGS: Clear to percussion and to auscultation. Good air exchange. No wheezing or rhonchi. HEART: S1, S2 regular. ABDOMEN: Soft and nontender. Obese EXTREMITIES: No clubbing or cyanosis. SHIRRING MACHINE OPERATOR: Awake, alert, and oriented x3. No focal deficit. Impressions: 1. Obstructive sleep apnea-hypopnea syndrome. Patient demonstrated great compliance with treatment, benefiting from treatment. Apnea-hypopnea index slightly increased to 6.6, possibly secondary to increasing weight 2. Obesity, BMI 36.3, patient increased weight on 19 pounds comparing with previous visit. 3. History of depression. 4. Hypothyroidism. 5. Hyperlipidemia. 6. Status post right shoulder repair. 7. History of asthma. 8. History of skin cancer. 9. History of fibromyalgia. I slightly increased pressure in AutoPap to the range 5-14 cm of water. Plan: 1. Continue using PAP equipment every night for the whole night. 2. Sleep hygiene with regular time in bed for at least 7.5-8 hours 3. PAP unit should stay lower then position of the head. 4. Advised patient to remove all remaining water from humidifier canister daily and make it dry after each usage. Refill canister with fresh distilled water before each usage. 5. Watching and losing weight. 6. Precautions related to driving. No driving if feel any sleepiness. 7. I will maintain prescription for PAP supplies including mask, tube, filters. 8. Follow up visit in 8 months or earlier if patient has any problems. Thank you very much for allowing me to participate in the management of your patient. Amrit Santamaria MD, PhD, FAASM. Diplomat of [place] [employer], Sleep Medicine Board by [place] [employer] Adoption Services Manager of [facility] [place] cc: Bryan Nguyen MD Objective - Vital Signs Vital Signs: Vital Signs Temp 98.3 F 03/12/24 11:18 Pulse 67 03/12/24 11:18 Resp 16 03/12/24 11:18 BP 153/81 03/12/24 11:18 Pulse Ox 95 03/12/24 11:18 FiO2 Intake & Output 03/11/24 03/12/24 03/12/24 18:59 06:59 18:59 Weight 135.624 kg Home Medications: Home Medications Medication Instructions Recorded Confirmed Type Ergocalciferol (Vitamin D2) 50,000 unit PO MONSON 01/09/18 02/22/22 History [Vitamin D2] DULoxetine HCL [Cymbalta] 60 mg PO DAILY 02/21/22 02/22/22 History Gabapentin 300 mg PO DAILY 02/21/22 02/22/22 History Rosuvastatin [Crestor] 20 mg PO DAILY 02/21/22 02/22/22 History traZODone HCL [Desyrel] 200 mg PO HS 02/21/22 02/22/22 History HYDROcodone/APAP 7.5-325MG [[place]inkley 1 each PO Q6HR PRN #28 tab 02/22/22 Rx 7.5]
== END ==
LOC: 3 N SLEEP 10:56
PROVIDERS: ATTEND Internal Medicine
DX: G47.33 Obstructive sleep apnea (adult) (pediatric) (principal); E66.9 Obesity, unspecified; E03.9 Hypothyroidism, unspecified; F32.A Depression, unspecified; E78.5 Hyperlipidemia, unspecified; Z87.39 Personal history of other diseases of the musculoskeletal system and connective tissue; Z85.828 Personal history of other malignant neoplasm of skin; Z68.36 Body mass index [BMI] 36.0-36.9, adult; Z99.89 Dependence on other enabling machines and devices; Z98.890 Other specified postprocedural states; Z88.2 Allergy status to sulfonamides; Z87.891 Personal history of nicotine dependence; Z87.09 Personal history of other diseases of the respiratory system
CPT/HCPCS: 99212

== ENCOUNTER → 2024-05-01 | Outpatient (CLI) | payer MEDICARE ==
--- NOTE | 2024-05-01 12:43 | CTL ---
EXAMINATION TYPE: CT Low Dose Lung DATE OF EXAM ORDERED: 05/01/2024 COMPARISON: Chest, abdomen and pelvis dated 02/18/2021 HISTORY: Lung cancer screening CT DLP: 100.[address] CTDI: 2.6 mGy Automated exposure control for dose reduction was used. TECHNIQUE: Low dose computed tomography scan was performed through the chest at 1 mm thick sections a nd reconstructed images in multiple planes at 1 mm and [address] DIAGNOSTIC QUALITY: Satisfactory FINDINGS: There is no suspicious lung mass or nodule. There are 2 or 3 scattered micronodules. The lungs are clear and there is no abnormal airspace consolidation or interstitial density. There is no mediastinal, hilar or axillary adenopathy. There is no pleural effusion, pleural thickening or pneumothorax. No focal osseous lesions are seen. Limited scans the upper abdomen reveals no gross abnormality IMPRESSION: 1. Lung rads Category 2 benign. Continue routine screening at yearly intervals. 2. No acute cardiopulmonary disease. [facility], , 05/01/2024 12:41 PM
== END | disposition home or self-care (01) ==
LOC: RADCTMAIN 11:16
PROVIDERS: ATTEND Family Medicine
DX: Z12.2 Encounter for screening for malignant neoplasm of respiratory organs (principal); Z87.891 Personal history of nicotine dependence
CPT/HCPCS: 71271

== ENCOUNTER → 2024-11-04 | Outpatient (CLI) | payer MEDICARE ==
[2024-11-04 07:08] LABS: African American GFR (CKD) >90 (>60 ml/min/1.73 sqM); Blood Urea Nitrogen 17 mg/dL (9-20); Non-African American GFR(CKD) 79 (>60 ml/min/1.73 sqM)
--- NOTE | 2024-11-04 15:19 | CT ---
EXAMINATION TYPE: CT abdomen pelvis wo/w con DATE OF EXAM: 11/04/2024 7:48 AM COMPARISON: 02/18/2021. CLINICAL INDICATION: Male, 69 years old with history of R31.29 OTHER MICROSCOPIC HEMATURIA; MICROSCOP IC HEMATURIA AND PROTIEN IN URINE TECHNIQUE: Axial CT abdomen pelvis wo/w con;Sagittal and coronal reformats were created on a [employer] workstation. Contrast used:100ml mL of Isovue 300 without and with IV Contrast, (none if empty) Oral contrast used: without Oral Contrast (none if empty) CT DLP: 3734.50 mGycm, Automated exposure control for dose reduction was used. FINDINGS: LOWER CHEST: Unremarkable ABDOMEN LIVER: Diffusely hypoattenuating parenchyma. GALLBLADDER AND BILE DUCTS: Unremarkable. PANCREAS: Unremarkable. SPLEEN: Unremarkable. ADRENAL GLANDS: Unremarkable. KIDNEYS AND URETERS: No evidence of hydronephrosis or obstructing renal calculus. The ureters are unr emarkable. The ureters are suboptimally evaluated due to lack of excreted IV contrast and techniqu e. PELVIS BLADDER: No evidence for wall thickening or mass given limitations of exam. REPRODUCTIVE: Unremarkable. ABDOMEN & PELVIS STOMACH AND BOWEL: No evidence of bowel obstruction. The appendix is normal. PERITONEUM/RETROPERITONEUM: No evidence of pneumoperitoneum or free fluid. VASCULATURE: No evidence of aortic aneurysm. MUSCULOSKELETAL: No acute osseous abnormalities LYMPH NODES: No gross evidence for lymphadenopathy. SOFT TISSUE/ABDOMINAL WALL: Fat-containing umbilical hernia. Fat-containing umbilical hernia. IMPRESSION: 1. No evidence for urothelial lesion on this limited non-urogram technique study.. No evidence for r enal calculus or bladder calculus. 2. Hepatic steatosis. 3. Large left fat-containing ventral hernia. 4. Small umbilical hernia. [facility], , 11/04/2024 3:17 PM
== END | disposition home or self-care (01) ==
LOC: RADCTMAIN 06:32
PROVIDERS: ATTEND Urology
DX: K76.0 Fatty (change of) liver, not elsewhere classified (principal); K43.9 Ventral hernia without obstruction or gangrene; R31.29 Other microscopic hematuria; K42.9 Umbilical hernia without obstruction or gangrene
CPT/HCPCS: 82565; 84520; 74178; 36415; Q9967

== ENCOUNTER 2024-11-06 12:38 | Day surgery (SDC) | payer MEDICARE ==
[2024-11-04 16:06] VITALS: BMI 33.2
[~2024-11-06 12:38] MED LIST changes: +HYDROmorphone 0.5 MG/0.5 ML SYRINGE IVP PRN; -LACTATED RINGERS 1,000 ML IV SCH; +LIDOCAINE 1% (10MG/ML) FOR IV START INTRADERMA PRN; -LIDOCAINE 1% 20 ML VIAL (10MG/ML) FOR IV START INTRADERMA ONE; -LIDOCAINE 1% INJ 10MG/ML (20 ML MDV) ONE; -PROPOFOL 10 MG/ML 20 ML VIAL IV ONE; +droPERidol 2.5 MG/ML VIAL IVP ONE
[2024-11-06] MEDS: IV FLUID CONTINUATION 1,000 ML IV ONE (13:22)
[2024-11-06] MEDS: LACTATED RINGERS 1,000 ML IV SCH (13:22)
[2024-11-06] MEDS: ONDANSETRON 4 MG/2 ML VIAL IVP ONE (13:29)
[2024-11-06] MEDS: DEXAMETHASONE SOD PHOSPHATE 4 MG/ML 1 ML VIAL IV ONE (13:29)
[2024-11-06] MEDS: MIDAZOLAM 2 MG/2 ML VIAL IV ONE (13:46)
[2024-11-06] MEDS: BUPIVACAINE (PF) 0.25% 30 ML VIAL MISCELLANE ONE ×2 (14:17→15:10)
[2024-11-06] MEDS ORDERED: PROPOFOL 10 MG/ML 20 ML VIAL IV ONE (14:19)
[2024-11-06] MEDS ORDERED: SUCCINYLCHOLINE CHLORIDE 200 MG/10 ML VIAL IV ONE (14:19)
[2024-11-06] MEDS ORDERED: KETOROLAC 15 MG/ML 1 ML VIAL ONE (14:19)
[2024-11-06] MEDS ORDERED: LIDOCAINE 1% INJ 10MG/ML (20 ML MDV) ONE (14:19)
[2024-11-06] MEDS ORDERED: fentaNYL (PF) 50 MCG/ML 2 ML AMP ONE (14:19)
[2024-11-06] MEDS ORDERED: MIDAZOLAM 2 MG/2 ML VIAL ONE (14:19)
[2024-11-06 15:30] VITALS: TEMP 96.8
--- NOTE | 2024-11-06 15:32 | P.OP ---
Date of Procedure: 11/06/24 Preoperative Diagnosis: Internal derangement left knee Postoperative Diagnosis: 1. Tear medial and lateral meniscus left knee 2. Grade IV chondromalacia lateral femoral condyle left knee 3. Grade IV chondromalacia femoral sulcus left knee 4. Reactive synovitis medial, lateral and suprapatellar compartments left knee Procedure(s) Performed: 1. Arthroscopic partial medial and lateral meniscectomy left knee 2. Arthroscopic microfracture lateral femoral condyle left knee 3. Arthroscopic microfracture femoral sulcus left knee 4. Arthroscopic partial synovectomy medial, lateral and suprapatellar compartments left knee Anesthesia: DELANOA, local Surgeon: Yomi Mata Estimated Blood Loss (ml): 8 Pathology: none sent Condition: stable Disposition: PACU Indications for Procedure: 69-year-old patient seen with progressive left knee pain. After having treatment options discussed, he elected to proceed with arthroscopy. Operative Findings: See description of procedure Description of Procedure: Patient was taken to the operative suite. Patient underwent a general anesthetic by the department of anesthesia. Patient was given preoperative antibiotics. The left lower extremity was placed in a well-padded arthroscopic leg palomares. The left leg was prepped and draped in the normal sterile orthopedic fashion. A lateral parapatellar and suprapatellar incision was made. Trochars were inserted. Arthroscopy was initiated. Suprapatellar pouch revealed diffuse thick reactive synovitis. The patellofemoral joint appeared to articulate congruently. There was grade II/III chondromalacia of the patella without tears and grade III/IV chondromalacia femoral sulcus with large osteochondral flap tears present. The scope was guided into the medial gutter. No loose bodies or plica were identified. The scope was then guided into the medial compartment. A medial parapatellar incision was made. Trocar inserted followed by probe. There was a complex tear involving the posterior horn of the medial meniscus. There were grade II/III chondromalacia changes diffusely about the medial compartment without tears. There was some thick reactive synovitis anteriorly. I performed a partial medial meniscectomy getting down to stable meniscal tissue. I performed a partial synovectomy decompressing the reactive synovitis. The residual meniscus was probed and was found to be stable. There was good decompression of the synovitis. Scope and probe were then guided into the intercondylar notch. Cruciates were identified, probed and found to be stable. The scope and probe were then guided into lateral compartment. There is a complex tear involving the mid body of the lateral meniscus. There was an area of grade III/IV chondromalacia of the central weightbearing surface lateral femoral condyle with some osteochondral flap tears present. There was some thick reactive synovitis anteriorly. I performed a partial lateral meniscectomy getting down to stable meniscal tissue. I performed a chondroplasty of the lateral femoral condyle getting down to stable osteochondral tissue. I performed a partial synovectomy decompressing the reactive synovitis. There was an area of grade IV chondromalacia/exposed bone weightbearing surface lateral femoral condyle measuring just over a centimeter. I used a 60 degree microfracture awl and I performed a microfracture to that area penetrating the bone with resultant bleeding at the microfracture site. The residual meniscus was probed and was found to be stable. The residual osteochondral surface was stable. There was good decompression of the synovitis. The scope was in guided back into the suprapatellar compartment. I introduced a motorized shaver into the suprapatellar compartment. I debrided some piecemeal fragments of meniscus that I encountered. I performed a partial synovectomy decompressing that reactive synovitis. I performed a chondroplasty of the femoral sulcus getting down to stable osteochondral tissue. I did note 2 areas of grade IV chondromalacia/exposed bone along the femoral sulcus. I introduced a 20 degree microfracture awl and I performed microfractures to both the areas of exposed bone of the femoral sulcus penetrating the bone with resultant bleeding at both microfracture sites. The residual osteochondral surface was stable. There appeared to be good decompression of the synovitis. I took 1 more look around the entire knee, no residual debris. Instruments were now removed from the joint. The joint was infiltrated with .25% Marcaine. Steri-Strips were applied to the portal sites. Sterile dressings were applied. The patient was placed into a CARA hose. No tourniquet was utilized. The patient was awakened, transferred to a bed and taken to recovery stable satisfactory condition.
[2024-11-06 16:11] VITALS: RESP 16
[2024-11-06 16:38] VITALS: PULSE 63
[2024-11-06 16:40] VITALS: BP 13/60
== END 2024-11-06 16:58 | disposition home or self-care (01) ==
LOC: OR 12:38
PROVIDERS: ATTEND Orthopaedic Surgery
DX: S83.282A Other tear of lateral meniscus, current injury, left knee, initial encounter (principal); S83.242A Other tear of medial meniscus, current injury, left knee, initial encounter; M65.962 Unspecified synovitis and tenosynovitis, left lower leg; M22.42 Chondromalacia patellae, left knee; I10 Essential (primary) hypertension; E78.5 Hyperlipidemia, unspecified; I48.91 Unspecified atrial fibrillation; G47.33 Obstructive sleep apnea (adult) (pediatric); F41.9 Anxiety disorder, unspecified; F32.A Depression, unspecified; Z79.899 Other long term (current) drug therapy; Z79.01 Long term (current) use of anticoagulants; Z88.2 Allergy status to sulfonamides; X58.XXXA Exposure to other specified factors, initial encounter
CPT/HCPCS: 29879; 29880; J2250; J0330; J1100; J0690; J2405; J2003; J3010; J1885; J2704; J0665

== ENCOUNTER → 2024-11-21 | Outpatient (CLI) | payer MEDICARE ==
[2024-11-21 15:13] LABS: Basophils # (A) 0.03 X 10*3/uL (0.00-0.10); Basophils % (A) 0.4 %; Eosinophils # (A) 0.05 X 10*3/uL (0.04-0.35); Eosinophils % (A) 0.7 %; HCT 43.1 % (39.6-50.0); HGB 14.0 g/dL (13.0-17.0); Immature Grans, Automated 0.40 %; Lymphocytes # (A) 1.71 X 10*3/uL (0.90-5.00); Lymphocytes % (A) 25.3 %; MCH 32.0 pg (27.0-32.0); MCHC 32.5 g/dL (32.0-37.0); MCV 98.6 FL (80.0-97.0); Monocytes # (A) 0.81 X 10*3/uL (0.20-1.00); Monocytes % (A) 12.0 %; NRBC Per 100 WBC 0 X 10*3/uL (0.00-0.01); Neutrophils # (A) 4.14 X 10*3/uL (1.80-7.70); Neutrophils % (A) 61.2 %; Platelet Count 287 X 10*3/uL (140-440); RBC 4.37 X 10*6/uL (4.40-5.60); RDW 12.9 % (11.5-14.5); WBC 6.77 X 10*3/uL (4.50-10.00)
[2024-11-21 15:28] LABS: Anion Gap 11.80 mmol/L (4.00-12.00); BUN/Creat Ratio 15.44 Ratio (12.00-20.00); Blood Urea Nitrogen 13.9 mg/dL (9.0-27.0); Calcium 8.9 mg/dL (8.7-10.3); Carbon Dioxide 23.2 mmol/L (21.6-31.8); Chloride 106 mmol/L (96-109); Glucose 113 mg/dL (70-110); Potassium 4.6 mmol/L (3.5-5.5); Sodium 141 mmol/L (135-145)
[2024-11-21 20:28] LABS: Bilirubin,Urine Negative (Negative); Blood,Urine Negative (Negative); Color,Urine Yellow (Yellow); Ketones,Urine Negative (Negative); Nitrite,Urine Negative (Negative); PH, Urine 5.0; Specific Gravity,Urine 1.020 (1.001-1.030); Urobilinogen,Urine 0.2 E.U./DL
[2024-11-21 21:03] LABS: Bacteria,Urine None Seen (None Seen); Uric Acid Crystals,Urine Present
== END | disposition home or self-care (01) ==
LOC: LABWHC1 12:06
PROVIDERS: ATTEND Urology
DX: R31.29 Other microscopic hematuria (principal)
CPT/HCPCS: 36415; 80048; 81001; 85025; 87086